=== PATIENT | female | born 2000 | race Caucasian/White ===

== ENCOUNTER 2022-12-05 18:22 | Emergency (ER) | payer BC ==
[~2022-12-05] VITALS: Ht 167.6 cm; Wt 63.5 kg
[2022-12-05 18:30] VITALS: BP_SYST 115
[2022-12-05] MEDS ORDERED: DIPHTH,PERTUSS(ACELL),TET VAC 0.5 ML VIAL (Tdap) I.M. ONE (18:45)
[2022-12-05] MEDS ORDERED: ONDANSETRON 4 MG ODT TAB PO ONE (18:45)
[2022-12-05] MEDS ORDERED: IBUPROFEN 800 MG TABLET PO ONE (18:45)
[2022-12-05] MEDS ORDERED: IBUP-1969 PO (20:07)
[2022-12-05] MEDS ORDERED: AMOX500C2 PO (20:07)
[2022-12-05] MEDS ORDERED: AMOXICILLIN 500 MG CAPSULE PO ONE (20:15)
[2022-12-05 20:30] VITALS: BP_SYST 112
== END 2022-12-05 20:30 | disposition home or self-care (01) ==
LOC: SED 18:22
DX: S00.83XA Contusion of other part of head, initial encounter (principal); Z79.899 Other long term (current) drug therapy; V00.311A Fall from snowboard, initial encounter; Y92.89 Other specified places as the place of occurrence of the external cause; Y93.89 Activity, other specified; Y99.8 Other external cause status
CPT/HCPCS: 99284; 70450; 76376; 90715; 81025; Q0162